=== PATIENT | female | born 1990 | race Caucasian/White ===

== ENCOUNTER 2021-11-24 09:06 | Emergency (ER) | payer OTHER ==
[2021-11-24 11:47] LABS: RED BLOOD COUNT 5.42 M/UL (4.00-5.10); WHITE BLOOD COUNT 7.1 K/UL (4.5-11.0)
[2021-11-24 12:10] LABS: BUN/CREATININE RATIO 7 (0-10)
[2021-11-24] MEDS ORDERED: ZOFRAN 4 MG TAB4 MG PO (13:23)
[2021-11-24] MEDS ORDERED: OMNICEF 300 MG300 MG PO (13:23)
== END 2021-11-24 14:20 | disposition home or self-care (01) ==
LOC: ER1 09:06
PROVIDERS: Physician Assistant
DX: N39.0 Urinary tract infection, site not specified (principal); E87.6 Hypokalemia; R19.7 Diarrhea, unspecified; R10.13 Epigastric pain
CPT/HCPCS: 80053; 81001; 83690; 84703; 85025; 87077; 87086; 87186; 93005; 96374; 96375; 99284; J0696; J1885; Q9967